=== PATIENT | male | born 1965 | race Caucasian/White ===

== ENCOUNTER 2021-12-17 11:03 | Inpatient (IN) | payer MEDICAID ==
[~2021-12-17] VITALS: Ht 172.7 cm; Wt 80.3 kg
[2021-12-17 12:26] LABS: BASOPHILS % 0.6 % (0.0-2.0); EOSINOPHILS % 2.5 % (0.0-5.0); HEMATOCRIT. 28.6 % (42.0-52.0); HEMOGLOBIN. 9.2 g/dL (14.0-18.0); LYMPHOCYTES % 19.8 % (20.0-50.0); MEAN PLATELET VOLUME 8.3 fl (7.4-10.4); MONOCYTES % 10.3 % (2.0-8.0); NEUTROPHILS % 66.8 % (40.0-76.0); PLATELET 212 x1000/uL (130-400); RED BLOOD CELL COUNT 3.53 mill/uL (4.7-6.1); RED CELL DISTRIBUTION WIDTH 20.6 % (11.6-14.6)
[2021-12-17 12:35] LABS: INR 1.2; PROTHROMBIN TIME 12.7 sec (9.6-11.0)
[2021-12-17 12:39] LABS: CHLORIDE 105 mEq/L (98-107)
[2021-12-17 12:48] LABS: ETHANOL BLOOD < 10 mg/dL
[2021-12-17 13:18] LABS: CLARITY URINE CLEAR (CLEAR); COLOR URINE DARK YELLOW (YELLOW); KETONES URINE TRACE (NEGATIVE); LEUKOCYTE ESTERASE URINE NEGATIVE (NEGATIVE); NITRITE URINE NEGATIVE (NEGATIVE); OCCULT BLOOD URINE NEGATIVE (NEGATIVE); PROTEIN URINE TRACE (NEGATIVE); SPECIFIC GRAVITY URINE 1.028 (1.005-1.030)
[2021-12-17 13:35] LABS: *AMPHETAMINES SCREEN URINE NEGATIVE (NEGATIVE); *BARBITURATES SCREEN URINE NEGATIVE (NEGATIVE); *BENZODIAZEPINES SCREEN URINE PRESUMTIVE POSITIVE (NEGATIVE); *COCAINE SCREEN URINE NEGATIVE (NEGATIVE); CANNABINOID URINE SCREEN NEGATIVE (NEGATIVE); METHADONE URINE SCREEN NEGATIVE (NEGATIVE); OPIATES URINE SCREEN NEGATIVE (NEGATIVE); PHENCYCLIDINE URINE SCREEN NEGATIVE (NEGATIVE)
[2021-12-17 18:14] VITALS: BP 130/90
[2021-12-17 18:22] VITALS: BP 130/78
[2021-12-17 20:00] VITALS: BP 106/74
[2021-12-17] MEDS ORDERED: ONDANSETRON HCL 4MG/2ML INJ IV PRN (21:00)
[2021-12-17] MEDS ORDERED: NALOXONE HCL 0.4MG/ML VIAL IV PRN (21:15)
[2021-12-17] MEDS: HYDROCODONE/ACETAMINOPHEN 5/325MG TABLET PO PRN (22:03)
[2021-12-18 00:01] VITALS: BP 114/77
[2021-12-18] MEDS: HYDROCODONE/ACETAMINOPHEN 5/325MG TABLET PO PRN ×4 (02:08→20:41)
[2021-12-18 04:00] VITALS: BP 105/63
[2021-12-18 06:52] LABS: HEMATOCRIT. 25.8 % (42.0-52.0); HEMOGLOBIN. 8.3 g/dL (14.0-18.0); MEAN CORPUSCULAR HEMOGLOBIN 26.1 pg (28.0-32.0); MEAN CORPUSCULAR VOLUME 81.2 fL (80.0-94.0); MEAN PLATELET VOLUME 8.3 fl (7.4-10.4); PLATELET 182 x1000/uL (130-400); RED BLOOD CELL COUNT 3.17 mill/uL (4.7-6.1)
[2021-12-18 07:37] LABS: CHLORIDE 106 mEq/L (98-107)
[2021-12-18 08:00] VITALS: BP 110/76
[2021-12-18 10:03] LABS: PLATELET ESTIMATE NORMAL
[2021-12-18 11:34] VITALS: BP 98/71
[2021-12-18] MEDS: MULTIVITAMINS,THER W-MINERALS TABLET PO SCH (15:55)
[2021-12-18] MEDS: FOLIC ACID 1MG TABLET PO SCH (15:55)
[2021-12-18] MEDS: THIAMINE HCL 100MG TABLET PO SCH (15:55)
[2021-12-18 16:00] VITALS: BP 97/69
[2021-12-18 20:00] VITALS: BP 120/72
[2021-12-18] MEDS: ALBUMIN HUMAN 25GM/100ML (25%) IV SCH (20:10)
[2021-12-18] MEDS: CHLORDIAZEPOXIDE 25MG CAPSULE PO SCH (21:26)
[2021-12-18 21:57] LABS: TOTAL IRON BINDING CAPACITY 246 ug/dL (250-450)
[2021-12-18 22:20] LABS: FERRITIN 19 ng/mL (22-322)
[2021-12-18 22:30] LABS: VITAMIN B12 SERUM 1001 pg/mL (211-911)
[2021-12-19] VITALS: BP 106/73
[2021-12-19] MEDS: ALBUMIN HUMAN 25GM/100ML (25%) IV SCH ×4 (02:12→21:04)
[2021-12-19 04:00] VITALS: BP 112/76
[2021-12-19] MEDS: CHLORDIAZEPOXIDE 25MG CAPSULE PO SCH ×3 (05:11→21:04)
[2021-12-19 06:45] LABS: HEMATOCRIT. 27.3 % (42.0-52.0); HEMOGLOBIN. 8.7 g/dL (14.0-18.0); MEAN CORPUSCULAR HEMOGLOBIN 25.7 pg (28.0-32.0); MEAN CORPUSCULAR VOLUME 80.5 fL (80.0-94.0); MEAN PLATELET VOLUME 8.3 fl (7.4-10.4); PLATELET 171 x1000/uL (130-400); RED BLOOD CELL COUNT 3.39 mill/uL (4.7-6.1)
[2021-12-19 08:00] VITALS: BP 99/58
[2021-12-19 08:03] LABS: CHLORIDE 104 mEq/L (98-107)
[2021-12-19] MEDS: FOLIC ACID 1MG TABLET PO SCH (10:26)
[2021-12-19] MEDS: MULTIVITAMINS,THER W-MINERALS TABLET PO SCH (10:26)
[2021-12-19] MEDS: THIAMINE HCL 100MG TABLET PO SCH (10:26)
[2021-12-19] MEDS ORDERED: SODIUM BICARBONATE 4% (2.4MEQ) 5ML VIAL IV ONE (10:27)
[2021-12-19] MEDS ORDERED: LIDOCAINE HCL 1% 10 MG/ML 10ML VIAL ONE (10:27)
[2021-12-19] MEDS: HYDROCODONE/ACETAMINOPHEN 5/325MG TABLET PO PRN ×2 (11:09→19:14)
[2021-12-19 12:00] VITALS: BP 103/49
[2021-12-19] MEDS: IRON SUCROSE COMPLEX 100 MG/5 ML ML IV SCH (14:19)
[2021-12-19] MEDS: PANTOPRAZOLE SODIUM 40 MG/VIAL IV SCH (14:19)
[2021-12-19 16:00] VITALS: BP 110/67
[2021-12-19 20:00] VITALS: BP 101/66
[2021-12-19 22:22] LABS: PLATELET ESTIMATE NORMAL
[2021-12-20] VITALS: BP 103/58
[2021-12-20 04:00] VITALS: BP 115/70
[2021-12-20] MEDS: CHLORDIAZEPOXIDE 25MG CAPSULE PO SCH ×3 (05:36→21:58)
[2021-12-20] MEDS: HYDROCODONE/ACETAMINOPHEN 5/325MG TABLET PO PRN ×4 (05:37→21:58)
[2021-12-20 08:00] VITALS: BP 107/70
[2021-12-20 08:41] LABS: HEMATOCRIT. 23.5 % (42.0-52.0); HEMOGLOBIN. 7.5 g/dL (14.0-18.0); MEAN CORPUSCULAR HEMOGLOBIN 25.8 pg (28.0-32.0); MEAN CORPUSCULAR VOLUME 80.7 fL (80.0-94.0); MEAN PLATELET VOLUME 8.7 fl (7.4-10.4); PLATELET 151 x1000/uL (130-400); RED BLOOD CELL COUNT 2.91 mill/uL (4.7-6.1); RED CELL DISTRIBUTION WIDTH 20.9 % (11.6-14.6)
[2021-12-20 09:30] LABS: CHLORIDE 106 mEq/L (98-107)
[2021-12-20] MEDS: FOLIC ACID 1MG TABLET PO SCH (10:05)
[2021-12-20] MEDS: THIAMINE HCL 100MG TABLET PO SCH (10:06)
[2021-12-20] MEDS: MULTIVITAMINS,THER W-MINERALS TABLET PO SCH (10:06)
[2021-12-20] MEDS: PANTOPRAZOLE SODIUM 40 MG/VIAL IV SCH (10:06)
[2021-12-20 12:00] VITALS: BP 106/68
[2021-12-20] MEDS: IRON SUCROSE COMPLEX 100 MG/5 ML ML IV SCH (12:59)
[2021-12-20 14:06] LABS: PLATELET ESTIMATE NORMAL
[2021-12-20 16:00] VITALS: BP 112/75
[2021-12-20] MEDS: FUROSEMIDE 40MG TABLET PO SCH (17:56)
[2021-12-20 20:00] VITALS: BP 97/57
[2021-12-20] MEDS: ALBUMIN HUMAN 25GM/100ML (25%) IV SCH (23:45)
[2021-12-21] VITALS (8 sets, daily range): BP systolic 93–107; BP diastolic 56–68
[2021-12-21] MEDS: ALBUMIN HUMAN 25GM/100ML (25%) IV SCH (05:29)
[2021-12-21] MEDS: HYDROCODONE/ACETAMINOPHEN 5/325MG TABLET PO PRN ×2 (05:29→11:23)
[2021-12-21] MEDS: CHLORDIAZEPOXIDE 25MG CAPSULE PO SCH ×3 (05:29→23:13)
[2021-12-21 08:19] LABS: HEMATOCRIT. 22.9 % (42.0-52.0); HEMOGLOBIN. 7.4 g/dL (14.0-18.0); MEAN CORPUSCULAR HEMOGLOBIN 25.7 pg (28.0-32.0); MEAN CORPUSCULAR VOLUME 79.8 fL (80.0-94.0); MEAN PLATELET VOLUME 8.4 fl (7.4-10.4); PLATELET 134 x1000/uL (130-400); RED BLOOD CELL COUNT 2.87 mill/uL (4.7-6.1)
[2021-12-21 08:34] LABS: INR 1.4; PROTHROMBIN TIME 14.8 sec (9.6-11.0)
[2021-12-21] MEDS ORDERED: SODIUM BICARBONATE 4% (2.4MEQ) 5ML VIAL IV ONE (09:29)
[2021-12-21] MEDS ORDERED: LIDOCAINE HCL 1% 10 MG/ML 10ML VIAL ONE (09:30)
[2021-12-21 09:48] LABS: PLATELET ESTIMATE NORMAL
[2021-12-21 10:28] LABS: CHLORIDE 105 mEq/L (98-107)
[2021-12-21] MEDS: FOLIC ACID 1MG TABLET PO SCH (11:21)
[2021-12-21] MEDS: PANTOPRAZOLE SODIUM 40 MG/VIAL IV SCH (11:21)
[2021-12-21] MEDS: FUROSEMIDE 40MG TABLET PO SCH (11:21)
[2021-12-21] MEDS: MULTIVITAMINS,THER W-MINERALS TABLET PO SCH (11:22)
[2021-12-21] MEDS: THIAMINE HCL 100MG TABLET PO SCH (11:22)
[2021-12-21] MEDS: IRON SUCROSE COMPLEX 100 MG/5 ML ML IV SCH (13:40)
[2021-12-22] VITALS: BP 94/58
[2021-12-22 02:20] LABS: HEMATOCRIT 26.4 % (42.0-52.0); HEMOGLOBIN 8.6 g/dL (14.0-18.0)
[2021-12-22 04:00] VITALS: BP 92/60
[2021-12-22] MEDS: CHLORDIAZEPOXIDE 25MG CAPSULE PO SCH ×3 (05:32→23:44)
[2021-12-22 08:00] VITALS: BP 117/80
[2021-12-22 08:15] LABS: HEMATOCRIT. 27.8 % (42.0-52.0); MEAN CORPUSCULAR HEMOGLOBIN 26.4 pg (28.0-32.0); MEAN CORPUSCULAR VOLUME 81.3 fL (80.0-94.0); MEAN PLATELET VOLUME 8.3 fl (7.4-10.4); PLATELET 142 x1000/uL (130-400); RED BLOOD CELL COUNT 3.41 mill/uL (4.7-6.1); RED CELL DISTRIBUTION WIDTH 21.3 % (11.6-14.6)
[2021-12-22 08:17] LABS: CHLORIDE 106 mEq/L (98-107)
[2021-12-22] MEDS: PANTOPRAZOLE SODIUM 40 MG/VIAL IV SCH (09:02)
[2021-12-22] MEDS: FUROSEMIDE 40MG TABLET PO SCH (09:02)
[2021-12-22] MEDS: FOLIC ACID 1MG TABLET PO SCH (09:02)
[2021-12-22] MEDS: THIAMINE HCL 100MG TABLET PO SCH (09:02)
[2021-12-22] MEDS: MULTIVITAMINS,THER W-MINERALS TABLET PO SCH (09:03)
[2021-12-22] MEDS: HYDROCODONE/ACETAMINOPHEN 5/325MG TABLET PO PRN ×2 (11:34→20:03)
[2021-12-22 11:46] LABS: PLATELET ESTIMATE NORMAL
[2021-12-22 12:00] VITALS: BP 111/75
[2021-12-22 16:00] VITALS: BP 123/84
[2021-12-22 20:00] VITALS: BP 99/61
[2021-12-22] MEDS: ACETAMINOPHEN 325MG TABLET PO PRN (20:02)
[2021-12-23] VITALS (7 sets, daily range): BP systolic 87–111; BP diastolic 39–76
[2021-12-23] MEDS: CHLORDIAZEPOXIDE 25MG CAPSULE PO SCH ×3 (05:31→20:28)
[2021-12-23 06:27] LABS: HEMATOCRIT. 26.9 % (42.0-52.0); HEMOGLOBIN. 8.8 g/dL (14.0-18.0); MEAN CORPUSCULAR HEMOGLOBIN 26.9 pg (28.0-32.0); PLATELET 102 x1000/uL (130-400); RED BLOOD CELL COUNT 3.29 mill/uL (4.7-6.1); RED CELL DISTRIBUTION WIDTH 21.6 % (11.6-14.6)
[2021-12-23 06:44] LABS: CHLORIDE 98 mEq/L (98-107)
[2021-12-23] MEDS ORDERED: GADOTERATE MEGLUMINE 5 MMOL/10 ML VIAL IV ONE (08:55)
[2021-12-23] MEDS: FUROSEMIDE 40MG TABLET PO SCH (09:00)
[2021-12-23] MEDS ORDERED: DIPHENHYDRAMINE 50MG/ML VIAL IV NR (09:45)
[2021-12-23] MEDS: ACETAMINOPHEN 325MG TABLET PO PRN ×2 (10:05→23:46)
[2021-12-23] MEDS: FOLIC ACID 1MG TABLET PO SCH (10:44)
[2021-12-23] MEDS: MULTIVITAMINS,THER W-MINERALS TABLET PO SCH (10:44)
[2021-12-23] MEDS: PANTOPRAZOLE SODIUM 40 MG/VIAL IV SCH (10:44)
[2021-12-23] MEDS: THIAMINE HCL 100MG TABLET PO SCH (10:44)
[2021-12-23 10:56] LABS: PLATELET ESTIMATE DECREASED
[2021-12-23] MEDS: HYDROCODONE/ACETAMINOPHEN 5/325MG TABLET PO PRN (20:28)
[2021-12-23] MEDS ORDERED: NALOXONE HCL 0.4MG/ML VIAL IV PRN (20:30)
[2021-12-24 00:10] VITALS: BP 149/117
[2021-12-24] MEDS ORDERED: CLONIDINE 0.1MG TABLET PO PRN (00:45)
[2021-12-24 04:00] VITALS: BP 105/64
[2021-12-24 06:48] LABS: HEMATOCRIT. 27.6 % (42.0-52.0); MEAN CORPUSCULAR HEMOGLOBIN 27.3 pg (28.0-32.0); MEAN CORPUSCULAR VOLUME 83.5 fL (80.0-94.0); MEAN PLATELET VOLUME 9.2 fl (7.4-10.4); PLATELET 73 x1000/uL (130-400); RED CELL DISTRIBUTION WIDTH 22.5 % (11.6-14.6)
[2021-12-24 07:09] LABS: CHLORIDE 101 mEq/L (98-107)
[2021-12-24 08:00] VITALS: BP 98/47
[2021-12-24] MEDS: FOLIC ACID 1MG TABLET PO SCH (09:36)
[2021-12-24] MEDS: MULTIVITAMINS,THER W-MINERALS TABLET PO SCH (09:36)
[2021-12-24] MEDS: FUROSEMIDE 40MG TABLET PO SCH (09:36)
[2021-12-24] MEDS: THIAMINE HCL 100MG TABLET PO SCH (09:36)
[2021-12-24] MEDS: PANTOPRAZOLE SODIUM 40 MG/VIAL IV SCH (09:36)
[2021-12-24 11:33] LABS: HEPATITIS B SURFACE ANTIGEN NEGATIVE
[2021-12-24 12:00] VITALS: BP 104/50
[2021-12-24 14:07] LABS: PLATELET ESTIMATE DECREASED
[2021-12-24 16:00] VITALS: BP 110/58
[2021-12-24] MEDS: CEFTRIAXONE 2 G in DEXTROSE 5% WATER 50 ML IV SCH (18:19)
[2021-12-24] MEDS: METRONIDAZOLE 500MG TABLET PO SCH ×2 (18:19→20:06)
[2021-12-24 20:00] VITALS: BP 109/63
[2021-12-24] MEDS: ACETAMINOPHEN 325MG TABLET PO PRN (20:06)
[2021-12-25] VITALS: BP 100/58
[2021-12-25] MEDS: HYDROCODONE/ACETAMINOPHEN 5/325MG TABLET PO PRN ×2 (04:01→20:01)
[2021-12-25 04:06] VITALS: BP 102/53
[2021-12-25] MEDS: METRONIDAZOLE 500MG TABLET PO SCH ×3 (05:20→20:01)
[2021-12-25 05:44] LABS: HEMATOCRIT. 30.3 % (42.0-52.0); HEMOGLOBIN. 9.8 g/dL (14.0-18.0); MEAN CORPUSCULAR HEMOGLOBIN 27.4 pg (28.0-32.0); MEAN CORPUSCULAR VOLUME 84.6 fL (80.0-94.0); MEAN PLATELET VOLUME 9.4 fl (7.4-10.4); PLATELET 78 x1000/uL (130-400); RED BLOOD CELL COUNT 3.58 mill/uL (4.7-6.1); RED CELL DISTRIBUTION WIDTH 24.1 % (11.6-14.6)
[2021-12-25 05:50] LABS: INR 1.4; PROTHROMBIN TIME 14.2 sec (9.6-11.0)
[2021-12-25 08:00] VITALS: BP 103/63
[2021-12-25 08:15] LABS: CHLORIDE 103 mEq/L (98-107)
[2021-12-25] MEDS: FUROSEMIDE 40MG TABLET PO SCH (09:00)
[2021-12-25] MEDS: FOLIC ACID 1MG TABLET PO SCH (09:00)
[2021-12-25] MEDS: THIAMINE HCL 100MG TABLET PO SCH (09:00)
[2021-12-25] MEDS: MULTIVITAMINS,THER W-MINERALS TABLET PO SCH (09:00)
[2021-12-25] MEDS: PANTOPRAZOLE SODIUM 40 MG/VIAL IV SCH (09:33)
[2021-12-25 11:53] LABS: PLATELET ESTIMATE DECREASED
[2021-12-25 12:00] VITALS: BP 110/74
[2021-12-25] MEDS ORDERED: POTASSIUM CHLORIDE 20MEQ TABLET SR PO NR (12:30)
[2021-12-25 16:00] VITALS: BP 106/71
[2021-12-25] MEDS: CEFTRIAXONE 2 G in DEXTROSE 5% WATER 50 ML IV SCH (18:04)
[2021-12-25 20:00] VITALS: BP 113/74
[2021-12-25] MEDS: ALBUMIN HUMAN 25GM/100ML (25%) IV SCH ×2 (20:02→22:20)
[2021-12-26] VITALS: BP 120/87
[2021-12-26 04:00] VITALS: BP 106/71
[2021-12-26] MEDS: METRONIDAZOLE 500MG TABLET PO SCH ×3 (04:59→22:41)
[2021-12-26] MEDS: ALBUMIN HUMAN 25GM/100ML (25%) IV SCH ×3 (04:59→15:33)
[2021-12-26 07:28] LABS: HEMATOCRIT. 26.9 % (42.0-52.0); HEMOGLOBIN. 8.9 g/dL (14.0-18.0); MEAN CORPUSCULAR HEMOGLOBIN 27.7 pg (28.0-32.0); MEAN CORPUSCULAR VOLUME 83.4 fL (80.0-94.0); MEAN PLATELET VOLUME 10.3 fl (7.4-10.4); PLATELET 73 x1000/uL (130-400); RED BLOOD CELL COUNT 3.22 mill/uL (4.7-6.1); RED CELL DISTRIBUTION WIDTH 24.7 % (11.6-14.6)
[2021-12-26 07:45] VITALS: BP 111/65
[2021-12-26 07:46] LABS: INR 1.4; PROTHROMBIN TIME 14.5 sec (9.6-11.0)
[2021-12-26] MEDS ORDERED: LIDOCAINE HCL/EPINEPHRINE 1%-EPI 1:100,000 20 ML VIAL ONE (07:47)
[2021-12-26] MEDS ORDERED: SODIUM BICARBONATE 4% (2.4MEQ) 5ML VIAL IV ONE (07:47)
[2021-12-26] MEDS ORDERED: LIDOCAINE HCL 1% 10 MG/ML 10ML VIAL ONE (07:47)
[2021-12-26 09:11] LABS: CHLORIDE 102 mEq/L (98-107)
[2021-12-26 09:23] LABS: PLATELET ESTIMATE DECREASED
[2021-12-26] MEDS: FOLIC ACID 1MG TABLET PO SCH (09:58)
[2021-12-26] MEDS: MULTIVITAMINS,THER W-MINERALS TABLET PO SCH (09:58)
[2021-12-26] MEDS: PANTOPRAZOLE SODIUM 40 MG/VIAL IV SCH (09:58)
[2021-12-26] MEDS: FUROSEMIDE 40MG TABLET PO SCH (09:58)
[2021-12-26] MEDS: THIAMINE HCL 100MG TABLET PO SCH (09:58)
[2021-12-26 12:00] VITALS: BP 104/64
[2021-12-26 16:00] VITALS: BP 100/51
[2021-12-26] MEDS: CEFTRIAXONE 2 G in DEXTROSE 5% WATER 50 ML IV SCH (17:26)
[2021-12-26 20:00] VITALS: BP 109/56
[2021-12-27] VITALS: BP 98/55
[2021-12-27 04:00] VITALS: BP 101/58
[2021-12-27] MEDS: METRONIDAZOLE 500MG TABLET PO SCH ×3 (05:44→21:44)
[2021-12-27 06:41] LABS: HEMATOCRIT. 30.6 % (42.0-52.0); MEAN CORPUSCULAR HEMOGLOBIN 27.5 pg (28.0-32.0); MEAN CORPUSCULAR VOLUME 84.3 fL (80.0-94.0); MEAN PLATELET VOLUME 10.2 fl (7.4-10.4); PLATELET 80 x1000/uL (130-400); RED BLOOD CELL COUNT 3.62 mill/uL (4.7-6.1)
[2021-12-27 08:00] VITALS: BP 116/67
[2021-12-27 09:01] LABS: CHLORIDE 102 mEq/L (98-107)
[2021-12-27] MEDS: THIAMINE HCL 100MG TABLET PO SCH (09:32)
[2021-12-27] MEDS: MULTIVITAMINS,THER W-MINERALS TABLET PO SCH (09:32)
[2021-12-27] MEDS: FOLIC ACID 1MG TABLET PO SCH (09:32)
[2021-12-27] MEDS: PANTOPRAZOLE SODIUM 40 MG/VIAL IV SCH (09:32)
[2021-12-27] MEDS: FUROSEMIDE 40MG TABLET PO SCH (09:32)
[2021-12-27 10:40] LABS: PLATELET ESTIMATE DECREASED
[2021-12-27] MEDS ORDERED: MULT-1146 MT (11:38)
[2021-12-27] MEDS ORDERED: LEVO750T68 MT (11:38)
[2021-12-27] MEDS ORDERED: COR3 MT (11:38)
[2021-12-27] MEDS ORDERED: PANT40TA51 MT (11:38)
[2021-12-27] MEDS ORDERED: FOLI-43 PO (11:38)
[2021-12-27] MEDS ORDERED: METR-167 MT (11:38)
[2021-12-27] MEDS ORDERED: THIA100T72 PO (11:38)
[2021-12-27] MEDS ORDERED: SPIR25TA MT (11:38)
[2021-12-27 12:00] VITALS: BP 127/65
[2021-12-27 16:00] VITALS: BP 150/81
[2021-12-27] MEDS: CEFTRIAXONE 2 G in DEXTROSE 5% WATER 50 ML IV SCH (18:03)
[2021-12-27] MEDS: CARVEDILOL 3.125 MG TABLET PO SCH (18:19)
[2021-12-27] MEDS: SPIRONOLACTONE 50MG TABLET PO SCH (18:19)
[2021-12-27 20:00] VITALS: BP 99/62
[2021-12-28] VITALS: BP 102/63
[2021-12-28 04:00] VITALS: BP 105/72
[2021-12-28] MEDS: METRONIDAZOLE 500MG TABLET PO SCH ×2 (05:10→14:32)
[2021-12-28] MEDS: HYDROCODONE/ACETAMINOPHEN 5/325MG TABLET PO PRN (05:12)
[2021-12-28 08:00] VITALS: BP 86/64
[2021-12-28] MEDS: FOLIC ACID 1MG TABLET PO SCH (08:40)
[2021-12-28] MEDS: PANTOPRAZOLE SODIUM 40 MG/VIAL IV SCH (08:40)
[2021-12-28] MEDS: THIAMINE HCL 100MG TABLET PO SCH (08:40)
[2021-12-28] MEDS: MULTIVITAMINS,THER W-MINERALS TABLET PO SCH (08:40)
[2021-12-28] MEDS: CARVEDILOL 3.125 MG TABLET PO SCH ×2 (08:41→17:00)
[2021-12-28] MEDS: SPIRONOLACTONE 50MG TABLET PO SCH ×2 (08:41→17:47)
[2021-12-28 11:54] VITALS: BP 118/64
[2021-12-28 16:00] VITALS: BP 94/68
[2021-12-28] MEDS: CEFTRIAXONE 2 G in DEXTROSE 5% WATER 50 ML IV SCH (17:47)
[2021-12-28 20:00] VITALS: BP 85/34
[2021-12-29] VITALS: BP 95/59
[2021-12-29] MEDS: ALBUMIN HUMAN 25GM/100ML (25%) IV SCH ×2 (00:38→05:13)
[2021-12-29] MEDS: METRONIDAZOLE 500MG TABLET PO SCH ×4 (00:38→22:19)
[2021-12-29 04:00] VITALS: BP 99/59
[2021-12-29] MEDS: ACETAMINOPHEN 325MG TABLET PO PRN ×2 (04:04→16:47)
[2021-12-29 07:56] LABS: BASOPHILS % 0.2 % (0.0-2.0); EOSINOPHILS % 2.3 % (0.0-5.0); HEMATOCRIT. 30.5 % (42.0-52.0); LYMPHOCYTES % 13.9 % (20.0-50.0); MEAN CORPUSCULAR HEMOGLOBIN 27.5 pg (28.0-32.0); MEAN CORPUSCULAR VOLUME 83.8 fL (80.0-94.0); MEAN PLATELET VOLUME 9.9 fl (7.4-10.4); MONOCYTES % 13.3 % (2.0-8.0); NEUTROPHILS % 70.3 % (40.0-76.0); PLATELET 133 x1000/uL (130-400); RED BLOOD CELL COUNT 3.63 mill/uL (4.7-6.1); RED CELL DISTRIBUTION WIDTH 25.3 % (11.6-14.6)
[2021-12-29 08:00] VITALS: BP 105/65
[2021-12-29 08:04] LABS: CHLORIDE 98 mEq/L (98-107); INR 1.4; PROTHROMBIN TIME 15.1 sec (9.6-11.0)
[2021-12-29] MEDS: MULTIVITAMINS,THER W-MINERALS TABLET PO SCH (08:45)
[2021-12-29] MEDS: SPIRONOLACTONE 50MG TABLET PO SCH ×2 (08:45→16:47)
[2021-12-29] MEDS: THIAMINE HCL 100MG TABLET PO SCH (08:45)
[2021-12-29] MEDS: PANTOPRAZOLE SODIUM 40 MG/VIAL IV SCH (08:45)
[2021-12-29] MEDS: FOLIC ACID 1MG TABLET PO SCH (08:45)
[2021-12-29] MEDS: CARVEDILOL 3.125 MG TABLET PO SCH ×2 (08:46→16:47)
[2021-12-29] MEDS ORDERED: SODIUM BICARBONATE 4% (2.4MEQ) 5ML VIAL IV ONE (09:34)
[2021-12-29] MEDS ORDERED: LIDOCAINE HCL/PF 1% 10 MG/ML 5ML VIAL ONE (09:34)
[2021-12-29 12:00] VITALS: BP 105/71
[2021-12-29 16:00] VITALS: BP 118/75
[2021-12-29] MEDS: CEFTRIAXONE 2 G in DEXTROSE 5% WATER 50 ML IV SCH (16:48)
[2021-12-29 20:00] VITALS: BP 104/62
[2021-12-30] VITALS: BP 102/53
[2021-12-30 04:00] VITALS: BP 106/56
[2021-12-30] MEDS: METRONIDAZOLE 500MG TABLET PO SCH ×3 (05:48→20:34)
[2021-12-30] MEDS: ACETAMINOPHEN 325MG TABLET PO PRN ×2 (05:49→20:34)
[2021-12-30 08:00] VITALS: BP 104/62
[2021-12-30] MEDS: PANTOPRAZOLE SODIUM 40 MG/VIAL IV SCH (08:32)
[2021-12-30] MEDS: MULTIVITAMINS,THER W-MINERALS TABLET PO SCH (08:32)
[2021-12-30] MEDS: FOLIC ACID 1MG TABLET PO SCH (08:33)
[2021-12-30] MEDS: THIAMINE HCL 100MG TABLET PO SCH (08:33)
[2021-12-30] MEDS: CARVEDILOL 3.125 MG TABLET PO SCH ×2 (08:35→16:56)
[2021-12-30] MEDS: SPIRONOLACTONE 50MG TABLET PO SCH ×2 (08:35→16:56)
[2021-12-30 09:28] LABS: BASOPHILS % 0.2 % (0.0-2.0); EOSINOPHILS % 0.4 % (0.0-5.0); HEMATOCRIT. 30.1 % (42.0-52.0); LYMPHOCYTES % 12.2 % (20.0-50.0); MEAN CORPUSCULAR HEMOGLOBIN 27.7 pg (28.0-32.0); MEAN CORPUSCULAR VOLUME 83.1 fL (80.0-94.0); MEAN PLATELET VOLUME 9.2 fl (7.4-10.4); MONOCYTES % 14.5 % (2.0-8.0); NEUTROPHILS % 72.7 % (40.0-76.0); PLATELET 159 x1000/uL (130-400); RED BLOOD CELL COUNT 3.62 mill/uL (4.7-6.1); RED CELL DISTRIBUTION WIDTH 25.5 % (11.6-14.6)
[2021-12-30 09:49] LABS: CHLORIDE 99 mEq/L (98-107)
[2021-12-30 12:00] VITALS: BP 125/72
[2021-12-30 16:00] VITALS: BP 121/76
[2021-12-30] MEDS: CEFTRIAXONE 2 G in DEXTROSE 5% WATER 50 ML IV SCH (16:57)
[2021-12-30 20:00] VITALS: BP 98/56
[2021-12-31] VITALS: BP 100/56
[2021-12-31 04:00] VITALS: BP 100/64
[2021-12-31] MEDS: METRONIDAZOLE 500MG TABLET PO SCH ×3 (05:15→21:33)
[2021-12-31 08:00] VITALS: BP 105/65
[2021-12-31] MEDS: PANTOPRAZOLE SODIUM 40 MG/VIAL IV SCH (08:28)
[2021-12-31] MEDS: MULTIVITAMINS,THER W-MINERALS TABLET PO SCH (08:28)
[2021-12-31 08:29] LABS: HEMATOCRIT. 30.2 % (42.0-52.0); HEMOGLOBIN. 10.1 g/dL (14.0-18.0); MEAN CORPUSCULAR HEMOGLOBIN 27.9 pg (28.0-32.0); MEAN CORPUSCULAR VOLUME 83.5 fL (80.0-94.0); MEAN PLATELET VOLUME 8.8 fl (7.4-10.4); PLATELET 210 x1000/uL (130-400); RED BLOOD CELL COUNT 3.61 mill/uL (4.7-6.1); RED CELL DISTRIBUTION WIDTH 25.7 % (11.6-14.6)
[2021-12-31] MEDS: SPIRONOLACTONE 50MG TABLET PO SCH ×2 (08:29→17:00)
[2021-12-31] MEDS: THIAMINE HCL 100MG TABLET PO SCH (08:29)
[2021-12-31] MEDS: FOLIC ACID 1MG TABLET PO SCH (08:33)
[2021-12-31 08:46] LABS: CHLORIDE 101 mEq/L (98-107)
[2021-12-31] MEDS: CARVEDILOL 3.125 MG TABLET PO SCH ×2 (09:00→17:00)
[2021-12-31 10:56] LABS: PLATELET ESTIMATE NORMAL
[2021-12-31 12:00] VITALS: BP 98/56
[2021-12-31] MEDS ORDERED: BISACODYL 10MG SUPP PR SCH (14:00)
[2021-12-31 16:00] VITALS: BP 97/62
[2021-12-31] MEDS: CEFTRIAXONE 2 G in DEXTROSE 5% WATER 50 ML IV SCH (17:29)
[2021-12-31] MEDS: ACETAMINOPHEN 325MG TABLET PO PRN ×2 (17:33→21:41)
[2021-12-31 20:00] VITALS: BP 119/73
[2021-12-31] MEDS: HEMORRHOIDAL SUPP PR SCH (21:33)
[2022-01-01] VITALS: BP 111/65
[2022-01-01 04:00] VITALS: BP 95/57
[2022-01-01] MEDS: METRONIDAZOLE 500MG TABLET PO SCH ×3 (05:16→21:47)
[2022-01-01 07:34] LABS: INR 1.4; PROTHROMBIN TIME 14.9 sec (9.6-11.0)
[2022-01-01 07:36] LABS: HEMATOCRIT. 30.9 % (42.0-52.0); HEMOGLOBIN. 10.2 g/dL (14.0-18.0); MEAN CORPUSCULAR HEMOGLOBIN 27.6 pg (28.0-32.0); MEAN CORPUSCULAR VOLUME 83.3 fL (80.0-94.0); MEAN PLATELET VOLUME 8.6 fl (7.4-10.4); PLATELET 235 x1000/uL (130-400); RED BLOOD CELL COUNT 3.71 mill/uL (4.7-6.1); RED CELL DISTRIBUTION WIDTH 25.3 % (11.6-14.6)
[2022-01-01 08:00] VITALS: BP 113/73
[2022-01-01 08:31] LABS: CHLORIDE 105 mEq/L (98-107)
[2022-01-01] MEDS: SPIRONOLACTONE 50MG TABLET PO SCH ×2 (09:27→16:33)
[2022-01-01] MEDS: THIAMINE HCL 100MG TABLET PO SCH (09:27)
[2022-01-01] MEDS: MULTIVITAMINS,THER W-MINERALS TABLET PO SCH (09:27)
[2022-01-01] MEDS: FOLIC ACID 1MG TABLET PO SCH (09:27)
[2022-01-01] MEDS: CARVEDILOL 3.125 MG TABLET PO SCH ×2 (09:27→16:33)
[2022-01-01] MEDS: PANTOPRAZOLE SODIUM 40 MG/VIAL IV SCH (09:28)
[2022-01-01] MEDS: HEMORRHOIDAL SUPP PR SCH ×2 (09:39→21:47)
[2022-01-01] MEDS: BISACODYL 5MG TABLET PO SCH (09:39)
[2022-01-01 10:11] LABS: PLATELET ESTIMATE NORMAL
[2022-01-01 12:00] VITALS: BP 109/69
[2022-01-01 16:00] VITALS: BP 97/63
[2022-01-01] MEDS: CEFTRIAXONE 2 G in DEXTROSE 5% WATER 50 ML IV SCH (17:08)
[2022-01-01 20:00] VITALS: BP 110/64
[2022-01-02 00:24] VITALS: BP 103/58
[2022-01-02 04:00] VITALS: BP 96/58
[2022-01-02] MEDS: METRONIDAZOLE 500MG TABLET PO SCH ×3 (05:56→21:08)
[2022-01-02 07:17] LABS: BASOPHILS % 0.3 % (0.0-2.0); EOSINOPHILS % 1.3 % (0.0-5.0); HEMATOCRIT. 30.7 % (42.0-52.0); HEMOGLOBIN. 10.1 g/dL (14.0-18.0); LYMPHOCYTES % 14.1 % (20.0-50.0); MEAN CORPUSCULAR HEMOGLOBIN 27.6 pg (28.0-32.0); MEAN PLATELET VOLUME 8.5 fl (7.4-10.4); MONOCYTES % 12.6 % (2.0-8.0); NEUTROPHILS % 71.7 % (40.0-76.0); PLATELET 265 x1000/uL (130-400); RED BLOOD CELL COUNT 3.65 mill/uL (4.7-6.1); RED CELL DISTRIBUTION WIDTH 25.4 % (11.6-14.6)
[2022-01-02 08:00] VITALS: BP 101/68
[2022-01-02] MEDS: HEMORRHOIDAL SUPP PR SCH ×2 (09:00→21:00)
[2022-01-02] MEDS: SPIRONOLACTONE 50MG TABLET PO SCH ×2 (09:00→17:00)
[2022-01-02] MEDS: CARVEDILOL 3.125 MG TABLET PO SCH ×2 (09:00→17:00)
[2022-01-02] MEDS: PANTOPRAZOLE SODIUM 40 MG/VIAL IV SCH (09:18)
[2022-01-02] MEDS: FOLIC ACID 1MG TABLET PO SCH (09:19)
[2022-01-02] MEDS: MULTIVITAMINS,THER W-MINERALS TABLET PO SCH (09:19)
[2022-01-02] MEDS: THIAMINE HCL 100MG TABLET PO SCH (09:19)
[2022-01-02] MEDS: BISACODYL 5MG TABLET PO SCH (09:20)
[2022-01-02 11:42] LABS: CHLORIDE 101 mEq/L (98-107)
[2022-01-02 12:00] VITALS: BP 151/76
[2022-01-02 16:00] VITALS: BP 103/72
[2022-01-02] MEDS: CEFTRIAXONE 2 G in DEXTROSE 5% WATER 50 ML IV SCH (18:19)
[2022-01-02 20:00] VITALS: BP 101/63
[2022-01-03] VITALS: BP 106/68
[2022-01-03] MEDS: ACETAMINOPHEN 325MG TABLET PO PRN (02:54)
[2022-01-03 04:00] VITALS: BP 101/66
[2022-01-03] MEDS: METRONIDAZOLE 500MG TABLET PO SCH ×3 (05:14→21:21)
[2022-01-03 07:40] LABS: BASOPHILS % 0.3 % (0.0-2.0); EOSINOPHILS % 2.2 % (0.0-5.0); HEMATOCRIT. 30.9 % (42.0-52.0); HEMOGLOBIN. 10.2 g/dL (14.0-18.0); LYMPHOCYTES % 18.2 % (20.0-50.0); MEAN CORPUSCULAR HEMOGLOBIN 27.5 pg (28.0-32.0); MEAN CORPUSCULAR VOLUME 83.4 fL (80.0-94.0); MEAN PLATELET VOLUME 8.2 fl (7.4-10.4); MONOCYTES % 12.7 % (2.0-8.0); NEUTROPHILS % 66.6 % (40.0-76.0); PLATELET 262 x1000/uL (130-400); RED CELL DISTRIBUTION WIDTH 25.6 % (11.6-14.6)
[2022-01-03 08:00] VITALS: BP 98/63
[2022-01-03] MEDS: FOLIC ACID 1MG TABLET PO SCH (08:55)
[2022-01-03] MEDS: BISACODYL 5MG TABLET PO SCH (08:55)
[2022-01-03] MEDS: PANTOPRAZOLE SODIUM 40 MG/VIAL IV SCH (08:55)
[2022-01-03] MEDS: HEMORRHOIDAL SUPP PR SCH ×2 (08:55→21:21)
[2022-01-03] MEDS: MULTIVITAMINS,THER W-MINERALS TABLET PO SCH (08:55)
[2022-01-03] MEDS: THIAMINE HCL 100MG TABLET PO SCH (08:55)
[2022-01-03] MEDS: SPIRONOLACTONE 50MG TABLET PO SCH ×2 (08:55→17:00)
[2022-01-03] MEDS: CARVEDILOL 3.125 MG TABLET PO SCH ×2 (08:56→17:00)
[2022-01-03 09:29] LABS: CHLORIDE 100 mEq/L (98-107)
[2022-01-03 12:00] VITALS: BP 102/68
[2022-01-03 16:00] VITALS: BP 105/72
[2022-01-03] MEDS: CEFTRIAXONE 2 G in DEXTROSE 5% WATER 50 ML IV SCH (18:07)
[2022-01-03 20:00] VITALS: BP 104/72
[2022-01-04] VITALS: BP 125/67
[2022-01-04 04:00] VITALS: BP 113/62
[2022-01-04 07:16] LABS: BASOPHILS % 0.5 % (0.0-2.0); EOSINOPHILS % 2.2 % (0.0-5.0); HEMOGLOBIN. 10.3 g/dL (14.0-18.0); LYMPHOCYTES % 19.5 % (20.0-50.0); MEAN CORPUSCULAR HEMOGLOBIN 27.7 pg (28.0-32.0); MEAN CORPUSCULAR VOLUME 83.7 fL (80.0-94.0); MEAN PLATELET VOLUME 8.1 fl (7.4-10.4); MONOCYTES % 12.7 % (2.0-8.0); NEUTROPHILS % 65.1 % (40.0-76.0); PLATELET 265 x1000/uL (130-400)
[2022-01-04 07:59] LABS: CHLORIDE 98 mEq/L (98-107)
[2022-01-04 08:00] VITALS: BP 107/71
[2022-01-04] MEDS: PANTOPRAZOLE SODIUM 40 MG/VIAL IV SCH (08:45)
[2022-01-04] MEDS: ACETAMINOPHEN 325MG TABLET PO PRN ×2 (08:45→18:08)
[2022-01-04] MEDS: FUROSEMIDE 20MG TABLET PO SCH (08:46)
[2022-01-04] MEDS: THIAMINE HCL 100MG TABLET PO SCH (08:46)
[2022-01-04] MEDS: MULTIVITAMINS,THER W-MINERALS TABLET PO SCH (08:46)
[2022-01-04] MEDS: BISACODYL 5MG TABLET PO SCH (08:46)
[2022-01-04] MEDS: HEMORRHOIDAL SUPP PR SCH ×2 (08:47→21:03)
[2022-01-04] MEDS: FOLIC ACID 1MG TABLET PO SCH (08:47)
[2022-01-04] MEDS: SPIRONOLACTONE 50MG TABLET PO SCH ×2 (08:52→18:09)
[2022-01-04] MEDS: CARVEDILOL 3.125 MG TABLET PO SCH ×2 (08:53→18:10)
[2022-01-04 12:00] VITALS: BP 103/61
[2022-01-04 16:00] VITALS: BP 110/64
[2022-01-04 20:00] VITALS: BP 101/62
[2022-01-05] VITALS: BP 98/62
[2022-01-05] MEDS: ACETAMINOPHEN 325MG TABLET PO PRN ×2 (02:30→20:22)
[2022-01-05 04:00] VITALS: BP 102/66
[2022-01-05 08:00] VITALS: BP 110/69
[2022-01-05] MEDS: CARVEDILOL 3.125 MG TABLET PO SCH ×2 (09:00→16:40)
[2022-01-05] MEDS: HEMORRHOIDAL SUPP PR SCH ×3 (09:00→20:22)
[2022-01-05] MEDS: MULTIVITAMINS,THER W-MINERALS TABLET PO SCH (09:35)
[2022-01-05] MEDS: FUROSEMIDE 20MG TABLET PO SCH (09:35)
[2022-01-05] MEDS: SPIRONOLACTONE 50MG TABLET PO SCH ×2 (09:35→16:39)
[2022-01-05] MEDS: THIAMINE HCL 100MG TABLET PO SCH (09:36)
[2022-01-05] MEDS: BISACODYL 5MG TABLET PO SCH (09:36)
[2022-01-05] MEDS: FOLIC ACID 1MG TABLET PO SCH (09:36)
[2022-01-05] MEDS: PANTOPRAZOLE SODIUM 40 MG/VIAL IV SCH (09:53)
[2022-01-05 12:00] VITALS: BP 120/74
[2022-01-05 16:00] VITALS: BP 114/82
[2022-01-05] MEDS: DOCUSATE SODIUM 250MG CAPSULE PO SCH ×2 (16:39→20:30)
[2022-01-05 20:00] VITALS: BP 111/72
[2022-01-06] VITALS (9 sets, daily range): BP systolic 94–115; BP diastolic 58–76
[2022-01-06] MEDS: FUROSEMIDE 20MG TABLET PO SCH ×2 (09:00→09:11)
[2022-01-06] MEDS: CARVEDILOL 3.125 MG TABLET PO SCH ×2 (09:00→16:20)
[2022-01-06] MEDS: PANTOPRAZOLE SODIUM 40 MG/VIAL IV SCH (09:06)
[2022-01-06] MEDS: DOCUSATE SODIUM 250MG CAPSULE PO SCH ×2 (09:06→16:20)
[2022-01-06] MEDS: THIAMINE HCL 100MG TABLET PO SCH (09:06)
[2022-01-06] MEDS: BISACODYL 5MG TABLET PO SCH (09:06)
[2022-01-06] MEDS: SPIRONOLACTONE 50MG TABLET PO SCH ×2 (09:07→16:21)
[2022-01-06] MEDS: FOLIC ACID 1MG TABLET PO SCH (09:07)
[2022-01-06] MEDS: HEMORRHOIDAL SUPP PR SCH ×2 (09:08→20:22)
[2022-01-06] MEDS: MULTIVITAMINS,THER W-MINERALS TABLET PO SCH (09:08)
[2022-01-07] VITALS: BP 107/69
[2022-01-07 04:00] VITALS: BP 91/59
[2022-01-07 08:00] VITALS: BP 107/71
[2022-01-07] MEDS: SPIRONOLACTONE 50MG TABLET PO SCH ×2 (10:48→16:42)
[2022-01-07] MEDS: DOCUSATE SODIUM 250MG CAPSULE PO SCH ×2 (10:49→16:42)
[2022-01-07] MEDS: CARVEDILOL 3.125 MG TABLET PO SCH ×2 (10:49→16:37)
[2022-01-07] MEDS: FUROSEMIDE 20MG TABLET PO SCH (10:50)
[2022-01-07] MEDS: FOLIC ACID 1MG TABLET PO SCH (10:50)
[2022-01-07] MEDS: HEMORRHOIDAL SUPP PR SCH ×2 (10:50→20:27)
[2022-01-07] MEDS: MULTIVITAMINS,THER W-MINERALS TABLET PO SCH (10:50)
[2022-01-07] MEDS: THIAMINE HCL 100MG TABLET PO SCH (10:50)
[2022-01-07] MEDS: BISACODYL 5MG TABLET PO SCH (10:50)
[2022-01-07] MEDS: PANTOPRAZOLE SODIUM 40 MG/VIAL IV SCH (10:59)
[2022-01-07 12:00] VITALS: BP 101/67
[2022-01-07 16:00] VITALS: BP 102/60
[2022-01-07 20:48] VITALS: BP 103/64
[2022-01-08] VITALS: BP 100/50
[2022-01-08 08:00] VITALS: BP 97/54
[2022-01-08] MEDS: PANTOPRAZOLE SODIUM 40 MG/VIAL IV SCH (08:48)
[2022-01-08] MEDS: HEMORRHOIDAL SUPP PR SCH (08:48)
[2022-01-08] MEDS: SPIRONOLACTONE 50MG TABLET PO SCH (08:56)
[2022-01-08] MEDS: BISACODYL 5MG TABLET PO SCH (08:57)
[2022-01-08] MEDS: FOLIC ACID 1MG TABLET PO SCH (08:57)
[2022-01-08] MEDS: FUROSEMIDE 20MG TABLET PO SCH (08:57)
[2022-01-08] MEDS: MULTIVITAMINS,THER W-MINERALS TABLET PO SCH (08:57)
[2022-01-08] MEDS: THIAMINE HCL 100MG TABLET PO SCH (08:57)
[2022-01-08] MEDS: DOCUSATE SODIUM 250MG CAPSULE PO SCH (08:58)
[2022-01-08] MEDS: CARVEDILOL 3.125 MG TABLET PO SCH (08:58)
[2022-01-08 12:00] VITALS: BP 108/63
[2022-01-08 13:48] VITALS: BP 108/63
== END 2022-01-08 15:15 | disposition home or self-care (01) | DRG 280 ==
LOC: ER 11:36 → 7WST 12:23 → EDBEDREQ 12:26 → ENRESERV 12:32
PROVIDERS: ADMIT Internal Medicine; ATTEND Internal Medicine
PROC: 0W9G3ZZ Drainage of Peritoneal Cavity, Percutaneous Approach (ICD-10-PCS; principal; 2021-12-19)
PROC: 0W9G3ZZ Drainage of Peritoneal Cavity, Percutaneous Approach (ICD-10-PCS; 2021-12-21)
PROC: 30233N1 Transfusion of Nonautologous Red Blood Cells into Peripheral Vein, Percutaneous Approach (ICD-10-PCS; 2021-12-21)
PROC: 0W9G3ZZ Drainage of Peritoneal Cavity, Percutaneous Approach (ICD-10-PCS; 2021-12-26)
PROC: 0W9G3ZZ Drainage of Peritoneal Cavity, Percutaneous Approach (ICD-10-PCS; 2021-12-29)
DX: K70.31 Alcoholic cirrhosis of liver with ascites (principal); A41.9 Sepsis, unspecified organism; K65.2 Spontaneous bacterial peritonitis; D72.10 Eosinophilia, unspecified; D68.59 Other primary thrombophilia; K76.6 Portal hypertension; E88.09 Other disorders of plasma-protein metabolism, not elsewhere classified; D64.9 Anemia, unspecified; D49.0 Neoplasm of unspecified behavior of digestive system; F10.20 Alcohol dependence, uncomplicated; K59.00 Constipation, unspecified; R16.1 Splenomegaly, not elsewhere classified; Z20.822 Contact with and (suspected) exposure to COVID-19
CPT/HCPCS: 36415; 49083; 74183; 76700; 80048; 80053; 80076; 80305; 80320; 81003; 82040; 82105; 82378; 82607; 82728; 82746; 82962; 83540; 83550; 83615; 84145; 85014; 85018; 85025; 86705; 86709; 86803; 86850; 86900; 86920; 87340; 87426; 87804; 88108; 93005; 93970; 97116; 97162; 97166; 97530; 97535; 99291; A9577; C9113; J0696; J1200; J2405; J3490; J7060; P9016; P9047; G0480

== ENCOUNTER 2022-10-01 15:23 | Emergency (ER) | payer MEDICAID ==
[~2022-10-01] VITALS: Ht 172.7 cm; Wt 77.0 kg
[~2022-10-01 15:23] MED LIST: COR3 MT; FOLI-43 PO; LEVO750T68 MT; METR-167 MT; MULT-1146 MT; PANT40TA51 MT; SPIR25TA MT; THIA100T72 PO
[2022-10-01 16:06] VITALS: O2SAT 100
[2022-10-01] MEDS ORDERED: MAGNESIUM/ALUMINUM HYDROXIDE/SIMETHICONE 30ML UDC PO STA (16:25)
[2022-10-01 16:33] LABS: HEMATOCRIT. 33.4 % (42.0-52.0); HEMOGLOBIN. 11.3 g/dL (14.0-18.0); MEAN CORPUSCULAR HEMOGLOBIN 35.4 pg (28.0-32.0); MEAN CORPUSCULAR VOLUME 104.8 fL (80.0-94.0); MEAN PLATELET VOLUME 9.2 fl (7.4-10.4); PLATELET 144 x1000/uL (130-400); RED BLOOD CELL COUNT 3.19 mill/uL (4.7-6.1); RED CELL DISTRIBUTION WIDTH 15.6 % (11.6-14.6)
[2022-10-01 16:43] LABS: CHLORIDE 106 mEq/L (98-107)
[2022-10-01 16:48] LABS: ETHANOL BLOOD < 10 mg/dL (-10)
[2022-10-01 17:05] LABS: PLATELET ESTIMATE NORMAL
[2022-10-01 17:18] LABS: CLARITY URINE CLEAR (CLEAR); COLOR URINE YELLOW (YELLOW); KETONES URINE NEGATIVE (NEGATIVE); LEUKOCYTE ESTERASE URINE NEGATIVE (NEGATIVE); NITRITE URINE NEGATIVE (NEGATIVE); OCCULT BLOOD URINE NEGATIVE (NEGATIVE); PH URINE 5.5 (4.5-8.0); PROTEIN URINE NEGATIVE (NEGATIVE); SPECIFIC GRAVITY URINE 1.006 (1.005-1.030); UROBILINOGEN URINE 0.2 E.U./dL (0.2-1.0)
[2022-10-01] MEDS ORDERED: POTASSIUM CHLORIDE 20MEQ TABLET SR PO ONE (19:45)
[2022-10-01] MEDS: POTASSIUM CHLORIDE 20MEQ TABLET SR PO NR ×2 (23:05→23:22)
[2022-10-01] MEDS: MAGNESIUM/ALUMINUM HYDROXIDE/SIMETHICONE 30ML UDC PO NR ×2 (23:05→23:22)
[2022-10-01] MEDS ORDERED: AMOX1TAB16 MT (23:10)
[2022-10-01] MEDS ORDERED: IBUP-2028 MT (23:10)
[2022-10-01] MEDS ORDERED: IBUPROFEN 400MG TABLET PO ONE (23:15)
[2022-10-01] MEDS ORDERED: AMOXICILLIN/POTASSIUM CLAVULANATE 875/125MG TAB PO ONE (23:15)
[2022-10-01 23:31] VITALS: BP 119/72
[2022-10-01 23:32] VITALS: PULSE 83; RESP 20; TEMP 98.3
== END 2022-10-01 23:30 | disposition home or self-care (01) ==
LOC: ER 15:52
DX: K52.9 Noninfective gastroenteritis and colitis, unspecified (principal); R10.33 Periumbilical pain; K74.60 Unspecified cirrhosis of liver; E87.6 Hypokalemia; F10.229 Alcohol dependence with intoxication, unspecified; Y90.0 Blood alcohol level of less than 20 mg/100 ml
CPT/HCPCS: 36415; 74176; 80053; 80320; 81003; 85025; 99284; G0480

== ENCOUNTER 2022-10-15 14:37 | Emergency (ER) | payer MEDICAID ==
[~2022-10-15] VITALS: Ht 160 cm; Wt 82.0 kg
[~2022-10-15 14:37] MED LIST changes: +AMOX1TAB16 MT; +IBUP-2028 MT
[2022-10-15 14:55] VITALS: O2SAT 100
[2022-10-15 15:58] LABS: BASOPHILS % 0.2 % (0.0-2.0); DIFFERENTIAL COMMENT 0; EOSINOPHILS % 1.1 % (0.0-5.0); HEMATOCRIT. 35.5 % (42.0-52.0); HEMOGLOBIN. 11.5 g/dL (14.0-18.0); LYMPHOCYTES % 14.6 % (20.0-50.0); MEAN CORPUSCULAR HGB CONC 32.4 g/dL (31.0-37.0); MEAN CORPUSCULAR VOLUME 104.7 fL (80.0-94.0); MEAN PLATELET VOLUME 8.5 fl (7.4-10.4); MONOCYTES % 10.3 % (2.0-8.0); NEUTROPHILS % 73.8 % (40.0-76.0); PLATELET 118 x1000/uL (130-400); RED BLOOD CELL COUNT 3.39 mill/uL (4.7-6.1); RED CELL DISTRIBUTION WIDTH 15.4 % (11.6-14.6); WHITE BLOOD COUNT 7.8 x1000/uL (4.5-11.0)
[2022-10-15 16:10] LABS: CHLORIDE 103 mEq/L (98-107); INDEX HEMOLYSI 1 (1-3); INDEX ICTERIC 1 (1-4); INDEX LIPEMIC 1 (1-3); POTASSIUM 4.1 mEq/L (3.5-5.1); SODIUM 135 mEq/L (136-145)
[2022-10-15 16:22] LABS: ALANINE AMINOTRANSFERASE 38 IU/L (13-61); ALBUMIN 2.6 g/dL (3.4-5.0); ASPARTATE AMINOTRANSFERASE 64 IU/L (15-37); BILIRUBIN TOTAL 1.4 mg/dL (0.1-1.0); CALCIUM 8.2 mg/dL (8.5-10.1); CARBON DIOXIDE 26 mEq/L (21-32); CREATININE 0.6 mg/dL (0.6-1.3); GLUCOSE 148 mg/dL (70-105); PROTEIN TOTAL 7.4 g/dL (6.0-8.3); UREA NITROGEN BLOOD 2 mg/dL (7-21)
[2022-10-15 19:51] LABS: CLARITY URINE CLEAR (CLEAR); COLOR URINE YELLOW (YELLOW); GLUCOSE URINE NEGATIVE (NEGATIVE); KETONES URINE NEGATIVE (NEGATIVE); LEUKOCYTE ESTERASE URINE NEGATIVE (NEGATIVE); NITRITE URINE NEGATIVE (NEGATIVE); OCCULT BLOOD URINE NEGATIVE (NEGATIVE); PH URINE 7.5 (4.5-8.0); PROTEIN URINE NEGATIVE (NEGATIVE); SPECIFIC GRAVITY URINE 1.006 (1.005-1.030)
[2022-10-15] MEDS ORDERED: CIPR500T5 MT (19:58)
[2022-10-15] MEDS ORDERED: LEVOFLOXACIN 500MG TABLET PO ONE (20:00)
[2022-10-15 20:32] VITALS: BP 124/78; PULSE 98; RESP 18; TEMP 99
== END 2022-10-15 20:33 | disposition home or self-care (01) ==
LOC: ER 14:37
DX: K52.9 Noninfective gastroenteritis and colitis, unspecified (principal)
CPT/HCPCS: 36415; 80053; 81003; 85025; 99283

== ENCOUNTER 2022-11-09 17:14 | Emergency (ER) | payer MEDICAID ==
[~2022-11-09] VITALS: Ht 167.6 cm; Wt 83.0 kg
[~2022-11-09 17:14] MED LIST changes: +CIPR500T5 MT
[2022-11-09 17:20] VITALS: TEMP 98; O2SAT 99
[2022-11-09 17:35] VITALS: BP 110/71; PULSE 121; RESP 16
[2022-11-09] MEDS ORDERED: IBUPROFEN 600MG TABLET PO STA (17:35)
[2022-11-09 18:08] LABS: BASOPHILS % 0.5 % (0.0-2.0); HEMATOCRIT. 29.2 % (42.0-52.0); HEMOGLOBIN. 9.5 g/dL (14.0-18.0); LYMPHOCYTES % 16.7 % (20.0-50.0); MEAN CORPUSCULAR HEMOGLOBIN 31.6 pg (28.0-32.0); MEAN CORPUSCULAR HGB CONC 32.6 g/dL (31.0-37.0); MEAN CORPUSCULAR VOLUME 96.9 fL (80.0-94.0); MEAN PLATELET VOLUME 9.8 fl (7.4-10.4); MONOCYTES % 12.4 % (2.0-8.0); NEUTROPHILS % 70.4 % (40.0-76.0); RED BLOOD CELL COUNT 3.01 mill/uL (4.7-6.1); RED CELL DISTRIBUTION WIDTH 15.7 % (11.6-14.6); WHITE BLOOD COUNT 4.1 x1000/uL (4.5-11.0)
[2022-11-09 18:13] LABS: INR 1.5; PROTHROMBIN TIME 15.9 sec (9.6-11.0)
[2022-11-09 18:17] LABS: CHLORIDE 107 mEq/L (98-107); INDEX HEMOLYSI 1 (1-3); INDEX ICTERIC 2 (1-4); INDEX LIPEMIC 1 (1-3); POTASSIUM 3.2 mEq/L (3.5-5.1); SODIUM 140 mEq/L (136-145)
[2022-11-09 18:23] LABS: DIFFERENTIAL COMMENT 1
[2022-11-09 18:26] LABS: ALANINE AMINOTRANSFERASE 21 IU/L (13-61); ALBUMIN 2.5 g/dL (3.4-5.0); ASPARTATE AMINOTRANSFERASE 49 IU/L (15-37); BILIRUBIN TOTAL 2.2 mg/dL (0.1-1.0); CARBON DIOXIDE 27 mEq/L (21-32); CREATININE 0.5 mg/dL (0.6-1.3); GLUCOSE 132 mg/dL (70-105); UREA NITROGEN BLOOD 12 mg/dL (7-21)
[2022-11-09] MEDS ORDERED: ONDA4TAB11 PO (19:06)
[2022-11-12 20:23] LABS: PLATELET 49 x1000/uL (130-400)
== END 2022-11-09 20:52 | disposition home or self-care (01) ==
LOC: ER 17:14
DX: K74.60 Unspecified cirrhosis of liver (principal); D69.6 Thrombocytopenia, unspecified
CPT/HCPCS: 36415; 80053; 85025; 99283

== ENCOUNTER 2022-11-10 08:02 | Inpatient (IN) | payer MEDICAID ==
[~2022-11-10] VITALS: Ht 175.3 cm; Wt 83.9 kg
[~2022-11-10 08:02] MED LIST changes: +ONDA4TAB11 PO
[2022-11-10] MEDS ORDERED: ONDANSETRON HCL 4MG/2ML INJ IV STA (08:07)
[2022-11-10] MEDS ORDERED: SODIUM CHLORIDE 0.9% 1,000 ML IV ONE ×3 (08:15→13:15)
[2022-11-10] MEDS ORDERED: PANTOPRAZOLE SODIUM 40 MG/VIAL IV ONE (08:15)
[2022-11-10 08:54] LABS: BASOPHILS % 0.3 % (0.0-2.0); HEMATOCRIT. 22.2 % (42.0-52.0); HEMOGLOBIN. 7.1 g/dL (14.0-18.0); LYMPHOCYTES % 10.7 % (20.0-50.0); MEAN CORPUSCULAR HEMOGLOBIN 31.7 pg (28.0-32.0); MEAN CORPUSCULAR HGB CONC 31.8 g/dL (31.0-37.0); MEAN CORPUSCULAR VOLUME 99.6 fL (80.0-94.0); MEAN PLATELET VOLUME 11.2 fl (7.4-10.4); MONOCYTES % 6.7 % (2.0-8.0); NEUTROPHILS % 82.3 % (40.0-76.0); PLATELET 105 x1000/uL (130-400); RED BLOOD CELL COUNT 2.23 mill/uL (4.7-6.1); RED CELL DISTRIBUTION WIDTH 16.1 % (11.6-14.6); WHITE BLOOD COUNT 6.4 x1000/uL (4.5-11.0)
[2022-11-10 09:02] LABS: CHLORIDE 103 mEq/L (98-107); INDEX HEMOLYSI 4 (1-3); INDEX ICTERIC 2 (1-4); INDEX LIPEMIC 1 (1-3); SODIUM 140 mEq/L (136-145)
[2022-11-10 09:08] LABS: ALANINE AMINOTRANSFERASE 24 IU/L (13-61); ALBUMIN 2.4 g/dL (3.4-5.0); ASPARTATE AMINOTRANSFERASE 69 IU/L (15-37); BILIRUBIN TOTAL 2.9 mg/dL (0.1-1.0); CALCIUM 7.9 mg/dL (8.5-10.1); CARBON DIOXIDE 21 mEq/L (21-32); CREATININE 0.9 mg/dL (0.6-1.3); ETHANOL BLOOD < 10 mg/dL (-10); GLUCOSE 172 mg/dL (70-105); PROTEIN TOTAL 6.3 g/dL (6.0-8.3); UREA NITROGEN BLOOD 21 mg/dL (7-21)
[2022-11-10 09:40] LABS: CLARITY URINE CLOUDY (CLEAR); COLOR URINE ORANGE (YELLOW); GLUCOSE URINE TRACE (NEGATIVE); KETONES URINE 1+ (NEGATIVE); LEUKOCYTE ESTERASE URINE TRACE (NEGATIVE); NITRITE URINE POSITIVE (NEGATIVE); OCCULT BLOOD URINE NEGATIVE (NEGATIVE); PH URINE 5.5 (4.5-8.0); PROTEIN URINE 1+ (NEGATIVE); SPECIFIC GRAVITY URINE 1.027 (1.005-1.030)
[2022-11-10 09:40] LABS: POTASSIUM 3.8 mEq/L (3.5-5.1)
[2022-11-10 09:42] LABS: RBC URINE 0-2 /hpf (0-2); YEAST URINE NONE SEEN
[2022-11-10 10:00] LABS: BACTERIA URINE 1+; MUCUS URINE 2+ /lpf (NONE/TRACE); SQUAMOUS EPITHELIAL CELL URINE FEW /lpf (RARE/1+)
[2022-11-10 10:01] LABS: HYALINE CASTS URINE 0-5 /lpf
[2022-11-10 10:14] LABS: *AMPHETAMINES SCREEN URINE NEGATIVE (NEGATIVE); *BARBITURATES SCREEN URINE NEGATIVE (NEGATIVE); *BENZODIAZEPINES SCREEN URINE NEGATIVE (NEGATIVE); *COCAINE SCREEN URINE NEGATIVE (NEGATIVE); CANNABINOID URINE SCREEN NEGATIVE (NEGATIVE); ECSTASY MDMA SCREEN URINE NEGATIVE (NEGATIVE); METHADONE URINE SCREEN NEGATIVE (NEGATIVE); OPIATES URINE SCREEN NEGATIVE (NEGATIVE); PHENCYCLIDINE URINE SCREEN NEGATIVE (NEGATIVE)
[2022-11-10 10:16] LABS: INR 1.7; PROTHROMBIN TIME 17.7 sec (9.6-11.0)
[2022-11-10] MEDS ORDERED: CEFTRIAXONE 1GM PREMIX 50 ML IV SCH (15:15)
[2022-11-10] MEDS ORDERED: CEFTRIAXONE 1GM PREMIX 50 ML IV NR (15:15)
[2022-11-10] MEDS ORDERED: ONDANSETRON HCL 4MG/2ML INJ IV PRN (15:15)
[2022-11-10 16:30] VITALS: BP 117/45; PULSE 45; RESP 16; TEMP 98
[2022-11-10 17:00] VITALS: BP 117/45; PULSE 45; RESP 16; TEMP 98
[2022-11-10 18:00] VITALS: PULSE 93; RESP 25
[2022-11-10] MEDS: PANTOPRAZOLE SODIUM 40 MG/VIAL IV SCH (19:07)
[2022-11-10 20:00] VITALS: BP 97/66; PULSE 90; TEMP 98.4
[2022-11-10] MEDS: SODIUM CHLORIDE 0.9% 1,000 ML IV SCH (21:21)
[2022-11-10 22:00] VITALS: BP 96/58; PULSE 87; RESP 7
[2022-11-10 22:23] LABS: HEPATITIS B SURFACE ANTIGEN NEGATIVE
[2022-11-11] VITALS (24 sets, daily range): BP systolic 89–115; BP diastolic 48–63; PULSE 74–89; RESP 12–18; TEMP 80–98.6
[2022-11-11] MEDS: ACETAMINOPHEN 325MG TABLET PO PRN (04:03)
[2022-11-11] MEDS: SODIUM CHLORIDE 0.9% 1,000 ML IV SCH ×2 (05:09→17:34)
[2022-11-11 07:52] LABS: CHLORIDE 107 mEq/L (98-107); INDEX HEMOLYSI 1 (1-3); INDEX ICTERIC 1 (1-4); INDEX LIPEMIC 1 (1-3); POTASSIUM 3.1 mEq/L (3.5-5.1); SODIUM 139 mEq/L (136-145)
[2022-11-11 07:57] LABS: CALCIUM 7.4 mg/dL (8.5-10.1); CARBON DIOXIDE 30 mEq/L (21-32); CREATININE 0.7 mg/dL (0.6-1.3); GLUCOSE 113 mg/dL (70-105); UREA NITROGEN BLOOD 21 mg/dL (7-21)
[2022-11-11 07:59] LABS: BASOPHILS % 0.3 % (0.0-2.0); EOSINOPHILS % 0.7 % (0.0-5.0); LYMPHOCYTES % 32.4 % (20.0-50.0); MEAN CORPUSCULAR HEMOGLOBIN 32.7 pg (28.0-32.0); MEAN CORPUSCULAR HGB CONC 33.7 g/dL (31.0-37.0); MEAN CORPUSCULAR VOLUME 97.2 fL (80.0-94.0); MEAN PLATELET VOLUME 9.7 fl (7.4-10.4); MONOCYTES % 13.2 % (2.0-8.0); NEUTROPHILS % 53.4 % (40.0-76.0); RED CELL DISTRIBUTION WIDTH 16.3 % (11.6-14.6); WHITE BLOOD COUNT 3.3 x1000/uL (4.5-11.0)
[2022-11-11 08:25] LABS: HEPATITIS C VIR.AB 0.14 INDEXVAL (0.00-0.80)
[2022-11-11] MEDS: PANTOPRAZOLE SODIUM 40 MG/VIAL IV SCH ×2 (08:52→17:33)
[2022-11-11] MEDS ORDERED: POTASSIUM CHLORIDE 20MEQ TABLET SR PO NR (09:30)
[2022-11-11] MEDS ORDERED: POTASSIUM CHLORIDE 20MEQ TABLET SR PO ONE (09:30)
[2022-11-11 09:42] LABS: DIFFERENTIAL COMMENT 1
[2022-11-11 09:46] LABS: ADD RBC MORPHOLOGY YES; HEMATOCRIT. 18.5 % (42.0-52.0); HEMOGLOBIN. 6.2 g/dL (14.0-18.0); PLATELET 43 x1000/uL (130-400)
[2022-11-11 09:54] LABS: ANISOCYTOSIS 1+; PLATELET ESTIMATE DECREASED
[2022-11-11 11:20] LABS: INDEX HEMOLYSI 1 (1-3); INDEX ICTERIC 1 (1-4); INDEX LIPEMIC 1 (1-3)
[2022-11-11 11:24] LABS: IRON 19 ug/dL (50-175); TOTAL IRON BINDING CAPACITY 234 ug/dL (250-450)
[2022-11-11] MEDS ORDERED: LORAZEPAM 2MG/ML CPJ IM PRN (13:15)
[2022-11-11 14:02] LABS: FERRITIN 25 ng/mL (22-322)
[2022-11-11 14:13] LABS: HEPATITIS B SURFACE ANTIGEN NEGATIVE
[2022-11-11 14:40] LABS: HEPATITIS B CORE AB IGM NEGATIVE
[2022-11-11 14:41] LABS: HEPATITIS A AB IGM NEGATIVE (NEGATIVE)
[2022-11-11 15:15] LABS: HEPATITIS C VIR.AB 0.16 INDEXVAL (0.00-0.80)
[2022-11-11 15:59] LABS: INDEX HEMOLYSI 1 (1-3)
[2022-11-11 16:29] LABS: VITAMIN B12 SERUM 629 pg/mL (211-911)
[2022-11-11] MEDS: PHYTONADIONE 10MG/ML AMP SUBCUT SCH (17:33)
[2022-11-11] MEDS: OCTREOTIDE 1,000 MCG in SODIUM CHLORIDE 0.9% 98 ML IV SCH (17:57)
[2022-11-11 18:15] LABS: HEMATOCRIT 22.3 % (42.0-52.0); HEMOGLOBIN 7.2 g/dL (14.0-18.0)
[2022-11-11 18:29] LABS: INR 1.5; PROTHROMBIN TIME 15.8 sec (9.6-11.0)
[2022-11-11] MEDS: CEFTRIAXONE 1,000 MG in DEXTROSE 5% WATER 50 ML IV SCH (21:18)
[2022-11-11 23:34] LABS: HEMATOCRIT 21.7 % (42.0-52.0); HEMOGLOBIN 7.2 g/dL (14.0-18.0)
[2022-11-11 23:38] LABS: INR 1.5; PROTHROMBIN TIME 15.9 sec (9.6-11.0)
[2022-11-12] VITALS (11 sets, daily range): BP systolic 97–107; BP diastolic 55–77; PULSE 70–101; RESP 11–21; TEMP 97.8–98.7
[2022-11-12 02:57] LABS: BASOPHILS % 0.6 % (0.0-2.0); EOSINOPHILS % 1.9 % (0.0-5.0); HEMATOCRIT. 22.5 % (42.0-52.0); HEMOGLOBIN. 7.5 g/dL (14.0-18.0); LYMPHOCYTES % 32.5 % (20.0-50.0); MEAN CORPUSCULAR HEMOGLOBIN 31.5 pg (28.0-32.0); MEAN CORPUSCULAR HGB CONC 33.2 g/dL (31.0-37.0); MEAN CORPUSCULAR VOLUME 94.9 fL (80.0-94.0); MONOCYTES % 11.7 % (2.0-8.0); NEUTROPHILS % 53.3 % (40.0-76.0); PLATELET 60 x1000/uL (130-400); RED BLOOD CELL COUNT 2.36 mill/uL (4.7-6.1); WHITE BLOOD COUNT 2.8 x1000/uL (4.5-11.0)
[2022-11-12 03:06] LABS: INR 1.5; PROTHROMBIN TIME 15.7 sec (9.6-11.0)
[2022-11-12 03:09] LABS: CHLORIDE 107 mEq/L (98-107); INDEX HEMOLYSI 1 (1-3); INDEX ICTERIC 1 (1-4); INDEX LIPEMIC 1 (1-3); POTASSIUM 3.4 mEq/L (3.5-5.1); SODIUM 138 mEq/L (136-145)
[2022-11-12 03:14] LABS: CALCIUM 7.2 mg/dL (8.5-10.1); CARBON DIOXIDE 27 mEq/L (21-32); CREATININE 0.6 mg/dL (0.6-1.3); GLUCOSE 127 mg/dL (70-105); UREA NITROGEN BLOOD 11 mg/dL (7-21)
[2022-11-12] MEDS: OCTREOTIDE 1,000 MCG in SODIUM CHLORIDE 0.9% 98 ML IV SCH (08:30)
[2022-11-12] MEDS: PANTOPRAZOLE SODIUM 40 MG/VIAL IV SCH ×2 (09:00→21:26)
[2022-11-12] MEDS: SODIUM CHLORIDE 0.9% 1,000 ML IV SCH ×2 (11:00→20:35)
[2022-11-12] MEDS: PHYTONADIONE 10MG/ML AMP SUBCUT SCH (12:39)
[2022-11-12 15:56] LABS: HEMATOCRIT 24.7 % (42.0-52.0); HEMOGLOBIN 8.1 g/dL (14.0-18.0); MEAN CORPUSCULAR HEMOGLOBIN 31.7 pg (28.0-32.0); MEAN CORPUSCULAR VOLUME 96.2 fL (80.0-94.0); PLATELET 57 x1000/uL (130-400); RED BLOOD CELL COUNT 2.57 mill/uL (4.7-6.1); WHITE BLOOD COUNT 2.3 x1000/uL (4.5-11.0)
[2022-11-12] MEDS ORDERED: PROPOFOL 200MG/20ML VIAL IV ONE (16:19)
[2022-11-12] MEDS ORDERED: MIDAZOLAM HCL 2 MG/2 ML VIAL ONE (16:20)
[2022-11-12] MEDS ORDERED: ONDANSETRON HCL 4MG/2ML INJ ONE (16:21)
[2022-11-12] MEDS ORDERED: PHENYLEPHRINE HCL 10 MG/ML 1ML (IV VIAL) IV ONE (16:21)
[2022-11-12] MEDS ORDERED: DEXAMETHASONE 4MG/ML 1ML VIAL ONE (16:22)
[2022-11-12] MEDS: CEFTRIAXONE 1,000 MG in DEXTROSE 5% WATER 50 ML IV SCH (19:43)
[2022-11-13] VITALS (7 sets, daily range): BP systolic 92–100; BP diastolic 57–65; PULSE 74–81; RESP 14–20; TEMP 97.8–98.4; O2SAT 100
[2022-11-13] MEDS: OCTREOTIDE 1,000 MCG in SODIUM CHLORIDE 0.9% 98 ML IV SCH (04:30)
[2022-11-13] MEDS: ACETAMINOPHEN 325MG TABLET PO PRN ×2 (04:59→08:35)
[2022-11-13 08:19] LABS: BASOPHILS % 0.1 % (0.0-2.0); EOSINOPHILS % 0.1 % (0.0-5.0); HEMOGLOBIN. 7.9 g/dL (14.0-18.0); LYMPHOCYTES % 21.3 % (20.0-50.0); MEAN PLATELET VOLUME 9.8 fl (7.4-10.4); MONOCYTES % 14.5 % (2.0-8.0); PLATELET 65 x1000/uL (130-400); RED BLOOD CELL COUNT 2.48 mill/uL (4.7-6.1); RED CELL DISTRIBUTION WIDTH 16.6 % (11.6-14.6); WHITE BLOOD COUNT 2.4 x1000/uL (4.5-11.0)
[2022-11-13] MEDS: PANTOPRAZOLE SODIUM 40 MG/VIAL IV SCH (08:36)
[2022-11-13 08:38] LABS: CHLORIDE 105 mEq/L (98-107); INDEX HEMOLYSI 1 (1-3); INDEX ICTERIC 1 (1-4); INDEX LIPEMIC 1 (1-3); POTASSIUM 3.8 mEq/L (3.5-5.1); SODIUM 136 mEq/L (136-145)
[2022-11-13 08:50] LABS: ALANINE AMINOTRANSFERASE 38 IU/L (13-61); ALBUMIN 2.2 g/dL (3.4-5.0); ASPARTATE AMINOTRANSFERASE 66 IU/L (15-37); BILIRUBIN DIRECT 0.5 mg/dL (0.0-0.2); BILIRUBIN TOTAL 0.9 mg/dL (0.1-1.0); CALCIUM 7.4 mg/dL (8.5-10.1); CARBON DIOXIDE 27 mEq/L (21-32); CREATININE 0.5 mg/dL (0.6-1.3); GLUCOSE 174 mg/dL (70-105); PROTEIN TOTAL 5.9 g/dL (6.0-8.3); UREA NITROGEN BLOOD 7 mg/dL (7-21)
[2022-11-13] MEDS: SODIUM CHLORIDE 0.9% 1,000 ML IV SCH (09:55)
[2022-11-13] MEDS ORDERED: PANT40TA51 MT (10:20)
== END 2022-11-13 15:22 | disposition home or self-care (01) | DRG 241 ==
LOC: ER 08:02 → EDBEDREQTM 11:29 → EDBEDREQ 11:29 → EDBEDREQSVC 12:07 → EDBEDREQTM 12:07 → EDBEDREQ 12:07 → 5EST 15:44
PROVIDERS: ADMIT Internal Medicine; ATTEND Internal Medicine
PROC: 30233N1 Transfusion of Nonautologous Red Blood Cells into Peripheral Vein, Percutaneous Approach (ICD-10-PCS; 2022-11-10)
PROC: 30233K1 Transfusion of Nonautologous Frozen Plasma into Peripheral Vein, Percutaneous Approach (ICD-10-PCS; 2022-11-11)
PROC: 30233R1 Transfusion of Nonautologous Platelets into Peripheral Vein, Percutaneous Approach (ICD-10-PCS; 2022-11-11)
PROC: 0DB78ZX Excision of Stomach, Pylorus, Via Natural or Artificial Opening Endoscopic, Diagnostic (ICD-10-PCS; principal; 2022-11-12)
DX: K29.71 Gastritis, unspecified, with bleeding (principal); D61.818 Other pancytopenia; D68.9 Coagulation defect, unspecified; E46 Unspecified protein-calorie malnutrition; K70.31 Alcoholic cirrhosis of liver with ascites; K76.6 Portal hypertension; I85.00 Esophageal varices without bleeding; D64.9 Anemia, unspecified; E80.6 Other disorders of bilirubin metabolism; R74.01 Elevation of levels of liver transaminase levels; F10.10 Alcohol abuse, uncomplicated; E87.6 Hypokalemia; N39.0 Urinary tract infection, site not specified; F17.210 Nicotine dependence, cigarettes, uncomplicated; K31.89 Other diseases of stomach and duodenum; Z68.27 Body mass index [BMI] 27.0-27.9, adult
CPT/HCPCS: 36415; 71045; 76700; 80048; 80053; 80076; 80305; 80320; 81003; 82270; 82607; 82728; 82746; 83540; 83550; 85014; 85018; 85025; 85027; 85044; 85049; 85384; 86705; 86709; 86803; 86850; 86900; 86920; 86927; 87340; 87426; 88305; 88312; 88313; 93005; 99291; C9113; J0696; J1100; J2250; J2354; J2370; J2405; J2704; J3430; J7030; J7050; J7060; P9016; P9017; P9034; G0480